=== PATIENT | female | born 1935 | race Caucasian/White ===

== ENCOUNTER 2016-10-03 11:47 | Emergency (ER) | payer OTHER, MEDICARE ==
--- NOTE | ~2016-10-03 | CR63 ---
[facility] A Service of [facility] & [facility] RADIOLOGY TEXT RESULTS PATIENT: ABBEY MONGE LOCATION: SED : 31 UNIT #: [id number] AGE: [address]: YARED Kenny Doctor SEX: F ORDER DR: [id number] [place] [id number] O MR#: [id number] Acc #: [id number] NAME: ABBEY MONGE : 1935 SEX: F STUDY DATE/TIME: 10/03/2016 13:13 UNIT: [facility]AD ROOM: STUDY DESCRIPTION: CR Chest 2 View Attending Physician: Estela Barakat Aprn Referring Physician: Estela Barakat Aprn Ordering Physician: Physician Non-Staff Primary Care Physician: Maia Koch A.P.R.N. MEDICAL IMAGING REPORT This report is preliminary unless electronic signature is present. EXAM Chest 10/03/2016 HISTORY 81-year-old woman with cough, wheezing, short of air past 3 days. History of congestion. Previous coronary stenting. COMPARISON STUDIES Comparison chest 04/24/2016 FINDINGS Two-view chest demonstrates mild cardiac enlargement. There is also mild aortic ectasia with calcific plaquing noted in the thoracic aorta. Hilar structures are preserved. The right lung is expanded and clear. There appears to be a minimal pneumonia in the left lower lobe. IMPRESSION Atherosclerotic cardiovascular disease with calcific plaquing present in the arch and mild cardiac enlargement. Patchy infiltrate probable in the left lower lobe. Short-interval followup appropriate. Dictated by... Mike Silverio M.D. THIS IS AN ELECTRONICALLY VERIFIED REPORT Mike Silverio M.D. at 10/04/2016 8:06 AM Zamzam TD: 10/03/2016 16:17 JOB #: [id number] MEDICAL IMAGING REPORT Page 1 of 1
[~2016-10-03 11:47] MED LIST: ACTONEL PO; ALTACE; ALTACE PO; ALTACE5 M1 PO; ASPIRIN PO; ASPIRIN81 M1 PO; ASPIRIN81 M2 PO; CENTRUM; CENTRUM PO; CITRACAL200 M1; CITRACAL200 MG PO; CLOPIDOGREL75 MG; COLESTID PO; DARVOCET-N 1001 TAB PO; FERROUS SULFATE PO; FERROUS SULFATE1 TAB PO; FLEXERIL PO; IRON TABLETS1 TAB; IRON TABLETS1 TAB PO; LEVAQUIN PO; LOMOTIL WHITE2.5 M1 DOB; LORTAB 7.5-5001 TAB PO; LOW DOSE ASPIRI81 M2; MELOXICAM15 MG; MOBIC PO; NIASPAN PO; NIASPAN750 MG; NORCO 10-325 TA1 TAB PO; PERCOCET 10/3251 TAB PO; TOPROL XL PO; TOPROL XL50 MG PO; VIBRAMYCIN100 M1 PO; ZETIA; ZETIA PO; [UNRECOGNIZED DRUG - OTHER]
== END 2016-10-03 12:00 | disposition left against medical advice (07) ==
LOC: SED 11:47 → EDSTATUS 13:04 → SRAD 13:06 → EDSTATUS 10-04 07:34 → SED 10-04 07:38
DX: Z53.21 Procedure and treatment not carried out due to patient leaving prior to being seen by health care provider (principal)
CPT/HCPCS: 71020